=== PATIENT | female | born 1980 | race African-American/Black ===

== ENCOUNTER 2018-06-23 10:24 | Emergency (ER) | payer MEDICAID, OTHER ==
[~2018-06-23] VITALS: Ht 160 cm; Wt 55.4 kg
[2018-06-23 12:39] VITALS: BP 130/81
== END 2018-06-23 12:41 | disposition home or self-care (01) ==
LOC: ER 11:47
DX: S62.317A Displaced fracture of base of fifth metacarpal bone, left hand, initial encounter for closed fracture (principal); F17.200 Nicotine dependence, unspecified, uncomplicated; Z98.890 Other specified postprocedural states; Z88.1 Allergy status to other antibiotic agents; W22.03XA Walked into furniture, initial encounter; Y93.89 Activity, other specified; Y92.018 Other place in single-family (private) house as the place of occurrence of the external cause
CPT/HCPCS: 29125; 73130; 81025; 99284